=== PATIENT | female | born 1960 | race Two or more races ===

== ENCOUNTER 2016-11-03 20:21 | Emergency (ER) | payer OTHER ==
[~2016-11-03] VITALS: Ht 162.6 cm; Wt 62.0 kg
[2016-11-03 20:27] VITALS: Ht 162.6 cm; Wt 62.0 kg
[2016-11-03] MEDS ORDERED: HYDROCODONE/APAP (5/325) TAB PO ONE (21:30)
[2016-11-03] MEDS ORDERED: HYDR-906 PO (22:22)
[2016-11-03] MEDS ORDERED: AMOX1TAB10 PO (22:22)
[2016-11-03 22:26] VITALS: BP 126/86; PULSE 78; RESP 18; TEMP 97.8
--- NOTE | 2016-11-03 22:45 | ERD ---
ER Documentation Chief Complaint Date/Time DATE: 11/03/16 TIME: 22:39 Chief Complaint TOOTHACHE X 1 DAY HPI 56-year-old female patient with no significant past medical history presents the ED complaining of diabetes, hypertension, hyperlipidemia presents to the ED complaining of toothache and gingiva pain that started intermittently 3 days ago. States that they tried to go to see a dentist. Denies any dysphagia, odynophagia. Denies any chest pain, shortness of breath, wheezing, fever, chills. ROS All systems reviewed and are negative except as per history of present illness. Medications Home Meds Active Scripts Hydrocodone/Acetaminophen (Norfolk 5-325 Tablet) 1 Each Tablet, 1 EACH PO QHS, #3 TAB Prov:MARYANN CARRINGTON PA-C 11/03/16 Amoxicillin/Potassium Clav (Amox-Clav 875-125 mg Tablet) 875-125 mg Tab, 1 TAB PO BID for 7 Days, #14 TAB Prov:MARYANN CARRINGTON PA-C 11/03/16 Allergies Allergies: Coded Allergies: No Known Allergy (Unverified , 11/03/16) PMhx/Soc Medical and Surgical Hx: pt denies Surgical Hx History of Surgery: No Anesthesia Reaction: No Hx Neurological Disorder: No Hx Respiratory Disorders: No Hx Cardiac Disorders: Yes (htn, diabetes, hyperlipidemia ) Hx Psychiatric Problems: No Hx Miscellaneous Medical Probl: No Hx Alcohol Use: No Hx Substance Use: No Hx Tobacco Use: No Smoking Status: Never smoker Physical Exam Vitals Vital Signs Date Time Temp Pulse Resp B/P Pulse Ox O2 Delivery O2 Flow Rate FiO2 11/03/16 22:26 97.8 78 18 126/86 98 Room Air 11/03/16 20:27 97.8 88 20 122/58 98 Physical Exam Const: [id number], well-nourished. In no acute distress. Head: Atraumatic, normocephalic Eyes: Normal Conjunctiva without injection. No purulent discharge. PERRL. EOMI ENT: Normal external ear. Ear canal without erythema. Tympanic membrane pearly elias without effusion or bulging. Nasal canal clear with normal turbinates. Moist oropharynx without tonsillar exudates. Erythema noted at the base of the left canine. No angioedema. Non-erythematous pharynx. Uvula midline. No drooling. No trismus. Neck: Full range of motion. No meningismus. No cervical lymphadenopathy. Resp: Clear to auscultation bilaterally. No wheezing, rhonchi, rales, or crackles. No accessory muscle use. No retractions. Cardio: Regular rate and rhythm. No murmurs, rubs or gallops. Abd: Soft, non tender, non distended. Normal bowel sounds. No palpable masses. No rebound tenderness. No guarding. Skin: No petechiae or rashes Back: No midline tenderness. No CVA tenderness. Ext: No cyanosis, or edema. Neur: Awake and alert. Psych: Normal Mood and Affect Results 24 hrs Current Medications Medications (Trade) Dose Ordered Sig/Ismael Route PRN Reason Start Time Stop Time Status Last Admin Dose Admin Acetaminophen/ Hydrocodone Bitart (Norfolk (5/325)) 1 tab ONCE ONCE PO 11/03/16 21:30 11/03/16 21:31 DC 11/03/16 21:36 Procedures/MDM 56-year-old female patient with no significant past medical history presents the ED complaining of toothache, gingival knee pain that started intermittently for 3 days. Patient is afebrile and nontoxic-appearing. Patient has normal vital signs. Patient was treated here in the ED with [place] with improvement of her pain. Patient likely has a dental abscess and tooth decay. It is erythematous with spontaneous drainage noted. There is no indication for an incision and drainage at this time. Patient's stated that they are going to follow-up with a dentist tomorrow. Patient is appropriate for outpatient antibiotics. Patient's physical exam include lungs which were clear to auscultation and a normal pulse oximetry. Bilateral ears pearly ruiz. No tenderness to palpation of tragus or mastoid. Low suspicion for mastoiditis, otitis externa, otitis media. Patient is speaking in full sentences. There is a low suspicion for pneumonia, epiglottitis, croup, sinusitis, peritonsillar abscess, hands foot mouth disease, scarlet fever, Kawasaki disease, Blu's angina, retropharyngeal abscess, meningitis, sepsis, acute abdomen or other emergent conditions. Discharge medications: Norfolk, Augmentin Follow up with primary care physician in 1-2 days. Instructed patient to return to the ED sooner for any worsening symptoms. Patient's questions were answered. Patient understood and agreed with discharge plan. Patient discharged stable. Departure Diagnosis: Primary Impression: Toothache Additional Impression: Dental abscess Condition: Stable Patient Instructions: Dental Abscess, Dental Pain Referrals: [facility] YOU HAVE RECEIVED A MEDICAL SCREENING EXAM AND THE RESULTS INDICATE THAT YOU DO NOT HAVE A CONDITION THAT REQUIRES URGENT TREATMENT IN THE EMERGENCY DEPARTMENT. FURTHER EVALUATION AND TREATMENT OF YOUR CONDITION CAN WAIT UNTIL YOU ARE SEEN IN YOUR DOCTORS OFFICE WITHIN THE NEXT 1-2 DAYS. IT IS YOUR RESPONSIBILITY TO MAKE AN APPOINTMENT FOR FOLOW-UP CARE. IF YOU HAVE A PRIMARY DOCTOR --you should call your primary doctor and schedule an appointment IF YOU DO NOT HAVE A PRIMARY DOCTOR YOU CAN CALL OUR PHYSICIAN REFERRAL HOTLINE AT IF YOU CAN NOT AFFORD TO SEE A PHYSICIAN YOU CAN CHOSE FROM THE FOLLOWING [facility] [address] [facility] [address] [facility] [facility] [address] [facility] [address] [facility] [address] [facility]. [facility] [address] [facility]. [facility] YOU HAVE RECEIVED A MEDICAL SCREENING EXAM AND THE RESULTS INDICATE THAT YOU DO NOT HAVE A CONDITION THAT REQUIRES URGENT TREATMENT IN THE EMERGENCY DEPARTMENT. FURTHER EVALUATION AND TREATMENT OF YOUR CONDITION CAN WAIT UNTIL YOU ARE SEEN IN YOUR DOCTORS OFFICE WITHIN THE NEXT 1-2 DAYS. IT IS YOUR RESPONSIBILITY TO MAKE AN APPOINTMENT FOR FOLOW-UP CARE. IF YOU HAVE A PRIMARY DOCTOR --you should call your primary doctor and schedule and appointment IF YOU DO NOT HAVE A PRIMARY DOCTOR YOU CAN CALL OUR PHYSICIAN REFERRAL HOTLINE AT . IF YOU CAN NOT AFFORD TO SEE A PHYSICIAN YOU CAN CHOSE FROM THE FOLLOWING [facility]: [facility] [address] [place] [address] [facility] [address] [place] [address] [facility] [address] [place] [address] [facility]RGENT [facility]/SPECIALTIES Additional Instructions: FOLLOW UP WITH YOUR DENTIST TOMORROW. Return to this facility if you are not improving as expected - fever, difficulty swallowing or breathing, etc. MARYANN CARRINGTON PA-C Nov 03, 2016 22:45 MARYANN CARRINGTON PA-C Nov 03, 2016 22:45
== END 2016-11-03 22:27 | disposition home or self-care (01) ==
LOC: FTE 20:21
DX: K08.89 Other specified disorders of teeth and supporting structures (principal); K04.7 Periapical abscess without sinus; E11.9 Type 2 diabetes mellitus without complications; I10 Essential (primary) hypertension
CPT/HCPCS: Z7502; Z7610; 99284